=== PATIENT | female | born 1955 | race Asian ===

== ENCOUNTER 2017-03-17 09:54 | Outpatient (CLI) | payer OTHER ==
--- NOTE | 2017-03-18 09:45 | DEXA Report ---
DEXA BONE MINERAL DENSITY: 03/17/2017 CLINICAL HISTORY: A 61-year-old postmenopausal female. TECHNIQUE: Dual energy x-ray absorptiometry (DXA) was performed on a [employer] system. Regions measured are the AP spine, femoral neck, and, if needed, forearm. COMPARISON: None. In accordance with the International Society for Clinical Densitometry (ISCD) guidelines, data from previous exams may be reanalyzed using current recommendations and techniques. This is done to allow a more accurate basis for comparison with the current study. FINDINGS: The data for the lumbar spine is as follows: REGION BMD (g/cm/cm) T-SCORE Z-SCORE L1 0.879 -2.1 -0.3 L2 0.746 -2.1 -0.3 L3 0.974 -1.9 -0.1 L4 0.853 -2.1 -0.3 TOTAL 0.942 -2.0 -0.2 NOTE: All evaluable vertebrae are used for classification. The data for the hip is as follows: REGION BMD (g/cm/cm) T-SCORE Z-SCORE Neck 0.780 -1.9 -0.2 TOTAL 0.872 -1.1 0.3 NOTE: The femoral neck or total proximal femur, whichever is lowest, is used for classification. FINDINGS: L1 through L4 bone mineral density is 0.94 g/sq cm for a T-score of - 2.0. This is compatible with osteopenia according to World Health Organization guidelines. Left hip total bone mineral density is 0.872 g/sq cm for a T-score of -1.1. This is compatible with mild osteopenia according to World Health Organization guidelines. Left femoral neck bone mineral density is 0.78 g/sq cm for a T-score of -1.9. This indicates osteopenia according to World Health Organization guidelines. IMPRESSION: THE WHO CLASSIFICATION BASED ON THE INTERNATIONAL REFERENCE STANDARD IS OSTEOPENIA. THE PATIENT HAS INCREASED FRACTURE RISK. RECOMMENDATION: Patients with diagnosis of osteoporosis or osteopenia should have regular bone mineral density assessment. For those eligible for Medicare, routine testing is allowed once every 2 years. Testing frequency can be increased for patients who have rapidly progressing disease or for those who are receiving medical therapy to restore bone mass. COMMENT: World Health Organization (WHO) definitions for osteoporosis and osteopenia: NORMAL BMD: T-score at -1.0 or higher, fracture risk is low. OSTEOPENIA BMD: T-score between -1.0 and -2.5, fracture risk is increased. OSTEOPOROSIS BMD: T-score at -2.5 or lower, fracture risk high. National Osteoporosis Foundation recommends: 1. Obtain adequate dietary calcium (at least 1200 mg per day) and vitamin D (400 -800 international units per day). 2. Participate, as appropriate, in regular weightbearing and muscle- strengthening exercise. 3. Avoid tobacco use and reduce alcohol and caffeine intake. 4. For more detailed information see the website at www.NOF.org. MTDD
== END 2017-03-17 09:55 | disposition home or self-care (01) ==
LOC: DI 09:54
PROVIDERS: ATTEND Family Medicine
DX: M85.89 Other specified disorders of bone density and structure, multiple sites (principal)
CPT/HCPCS: 77080

== ENCOUNTER 2017-05-30 15:24 | Outpatient (CLI) | payer OTHER ==
--- NOTE | 2017-05-31 09:22 | Ultrasound Report ---
RIGHT UPPER QUADRANT ULTRASOUND: 05/30/2017 CLINICAL INDICATION: Hepatitis. TECHNIQUE: Real-time scanning was performed with medical detail representative static images obtained. FINDINGS: The liver measures 12.4 cm. A 1 cm cyst is incidentally noted in the right lobe. No mariana d hepatic lesion or intrahepatic biliary dilatation is present. The common bile duct measures 6 mm. The gallbladder is normal. The right kidney measures 11.5 cm, and demonstrates no hydronephrosis. No free fluid is present. IMPRESSION: INCIDENTAL 1 CM RIGHT LOBE CYST. NO EVIDENCE OF CHOLELITHIASIS OR BILIARY OBSTRUCTION. JOB #: [id number] EXT JOB #:[id number]
== END 2017-05-30 15:25 | disposition home or self-care (01) ==
LOC: DI 15:24
PROVIDERS: ATTEND Physician Assistant
DX: B19.20 Unspecified viral hepatitis C without hepatic coma (principal)
CPT/HCPCS: 76705

== ENCOUNTER 2018-02-10 07:52 | Outpatient (CLI) | payer OTHER ==
--- NOTE | 2018-02-10 11:21 | Ultrasound Report ---
Procedure Date: 02/10/2018 Accession Number: [id number] / [id number] Procedure: US - Abdomen Complete CPT Code: FULL RESULT: EXAM: Abdomen Complete DATE: 02/10/2018 9:32 AM CLINICAL HISTORY: CIRRHOSIS, ABD LIVER ENZYMES, HEPATITIS COMPARISON: 05/30/2017 TECHNIQUE: Real-time scanning was performed with static images obtained. FINDINGS: Liver: Hepatic echogenicity is increased, likely representing fatty infiltration. Incidental 9 mm cyst in the right lobe. 12.8 cm. Main portal vein flow: Hepatopetal. Gallbladder: Cholelithiasis is present. No wall thickening or pericholecystic fluid. Biliary System: Common bile duct measures 4 mm. No intrahepatic or extrahepatic ductal dilatation. Pancreas: Visualized portion is unremarkable. Kidneys: Right: 11.4 cm longitudinally. Possible nephrolithiasis, without hydronephrosis. Upper pole cyst. No solid mass. Left: 10.9 cm longitudinally. Normal. No contour-deforming mass, stones, or hydronephrosis. Spleen: 7.1 cm. Normal in size and echotexture. Aorta and Inferior Vena Cava: Unremarkable. IMPRESSION: Likely fatty infiltration of the liver. Cholelithiasis, without evidence of acute cholecystitis or biliary obstruction. Possible right nephrolithiasis. RADIA
== END 2018-02-10 07:53 | disposition home or self-care (01) ==
LOC: DI 07:52
PROVIDERS: ATTEND Internal Medicine Gastroenterology
DX: K74.60 Unspecified cirrhosis of liver (principal); K80.20 Calculus of gallbladder without cholecystitis without obstruction
CPT/HCPCS: 76700

== ENCOUNTER 2018-06-30 12:02 | Outpatient (CLI) | payer OTHER ==
--- NOTE | 2018-06-30 16:45 | MRI Report ---
Reason: HEADACHE Procedure Date: 06/30/2018 Accession Number: [id number] / [id number] Procedure: MRI - Brain W/O CPT Code: FULL RESULT: EXAM: MRI BRAIN WITHOUT CONTRAST EXAM DATE: 06/30/2018 12:57 PM. CLINICAL HISTORY: Headaches increasing in frequency. COMPARISON: None. TECHNIQUE: Multiplanar, multisequence T1-weighted and fluid-sensitive MR sequences of the brain were performed. Sequences optimized for routine evaluation. Other: None. IV Contrast: None. FINDINGS: No cerebellar tonsillar ectopia is present. No abnormal restricted diffusion signal or magnetic susceptibility is identified in the brain parenchyma. Ventricles and sulci are within normal limits. No extra-axial fluid collection is present. There are a few punctate FLAIR hyperintensities in the cerebral hemisphere white matter bilaterally. An expected flow-void is seen in the major intracranial vessels at the skull base. No mass is identified in either orbit. An expected flow-void is seen in each transverse sinus and in the superior sagittal sinus. IMPRESSION: 1.FLAIR hyperintensities in the cerebral hemisphere white matter bilaterally are nonspecific. Commonly, these are seen secondary to small vessel ischemic change or in association with certain headache syndromes. White matter lesions have been described in many other entities, including in demyelinating processes. No lesion typical of multiple sclerosis is identified on the current study. 2. No intracranial mass. 3. No extra-axial fluid collection RADIA
== END 2018-06-30 12:03 | disposition home or self-care (01) ==
LOC: DI 12:02
PROVIDERS: ATTEND Family Medicine
DX: R51 Headache (principal); R90.89 Other abnormal findings on diagnostic imaging of central nervous system
CPT/HCPCS: 70551

== ENCOUNTER 2020-03-13 12:19 | Outpatient (CLI) | payer OTHER ==
--- NOTE | 2020-03-20 08:07 | Mammography Report ---
Reason: screening mammo Procedure Date: 03/17/2020 Accession Number: [id number] / [id number] Procedure: MGN - Screening Mammo w/Russ CPT Code: Final Report FULL RESULT: BILATERAL DIGITAL SCREENING MAMMOGRAM 3D/2D: 03/17/2020 CLINICAL: Routine screening. Comparison is made to exams dated: 07/06/2012 mammogram, 07/29/2011 mammogram, 06/29/2010 mammogram, and 04/07/2009 mammogram - [facility]. There are scattered fibroglandular elements in both breasts. There is a possible 0.7 cm irregular equal density asymmetry in the right breast middle depth superior region seen on the mediolateral oblique view only. No other significant masses, calcifications, or other findings are seen in either breast. IMPRESSION: INCOMPLETE: NEEDS ADDITIONAL IMAGING EVALUATION The possible 0.7 cm irregular equal density asymmetry in the right breast is indeterminate. Additional views with possible ultrasound are recommended. This exam was interpreted at Station ID: [id number]. NOTE: For mammograms, a report in lay terms will be sent to the patient. Approximately 15% of breast malignancies will not be visualized mammographically. In the management of a palpable breast mass, a negative mammogram must not discourage biopsy of a clinically suspicious lesion. Electronically Signed By: Pepe Hodge M.D. aty/:03/19/2020 18:22:24 ACR BI-RADS Category 0: Incomplete 3340F B -Scattered fibroglandular 0 Mammo and [id number] Immediate follow-up R
== END 2020-03-13 12:20 | disposition home or self-care (01) ==
LOC: DI.N 12:19
DX: Z12.31 Encounter for screening mammogram for malignant neoplasm of breast (principal); R92.8 Other abnormal and inconclusive findings on diagnostic imaging of breast
CPT/HCPCS: 77063; 77067

== ENCOUNTER 2020-04-18 07:25 | Outpatient (CLI) | payer OTHER ==
--- NOTE | 2020-04-18 17:17 | Ultrasound Report ---
PROCEDURE: Abdomen Complete INDICATIONS: UNSPECIFIICD VIRAL HEPATITIS C W/O HEPATIC COMA TECHNIQUE: Real-time scanning was performed of the abdominal and retroperitoneal organs, with image documentatio n. COMPARISON: Prior abdominal ultrasound 02/10/2018. FINDINGS: Liver: Liver is normal in size and homogeneous in echotexture, slightly coarse and likely a manifest ation of early cirrhotic change in a patient with hepatitis C. No adjacent varices or ascites is foun d. Gallbladder: Contains a 5 x 8 x 9 mm nonmobile rounded structure without posterior shadowing, of unce rtain etiology and clinical significance. This could represent a moderate-sized gallbladder polyp. Th e gallbladder wall is normal in thickness at 2 mm. Biliary ducts: Intrahepatic bile ducts are non-dilated. Extrahepatic bile duct caliber measures 3 m m. Normal is 6-7 mm or less in diameter, or 10 mm or less post-cholecystectomy. Pancreas: Visualized portions of the pancreas are sonographically normal. Spleen: Spleen is normal in size and homogeneous in echotexture. Kidneys: Kidneys are normal in size and echotexture. Right kidney measures 10.4 cm long; left kidne y measures 10.7 cm long. No hydronephrosis or nephrolithiasis. No solid masses. There is a small hy perechoic focus at the superior right renal cortex measuring 6 x 6 x 8 mm. No associated shadowing. A cecilio: Visualized aorta is normal in caliber at less than 3 cm. Iliacs: Proximal common iliac arteries are normal in caliber at less than 2.5 cm. IVC: Intrahepatic inferior vena cava is patent. Miscellaneous: No free abdominal fluid. IMPRESSION: 1. Mild heterogeneity of the liver echotexture in this patient with history of hepatitis C. Mild cirr hotic change is the likely cause, but no ascites or varices are found. 2. Note is made of a 8 x 5 x 9 mm fixed focus against the mucosal surface of the gallbladder, potenti ally a moderate-sized polyp. Occasionally an adherent focus of sludge could produce such an appearanc e. Follow-up targeted imaging of this area is recommended in 6 months. 3. Hyperechoic focus superior cortex right kidney, potentially an angiomyolipoma. On follow-up 6 sabra h ultrasound further targeted assessment of this area is recommended. Reviewed by: Gerardo Green MD on 04/18/2020 5:16 PM PDT Approved by: Gerardo Green MD on 04/18/2020 5:16 PM PDT Station ID: [id number]
== END 2020-04-18 07:26 | disposition home or self-care (01) ==
LOC: DI 07:25
PROVIDERS: ATTEND Physician Assistant
DX: B19.20 Unspecified viral hepatitis C without hepatic coma (principal); R93.2 Abnormal findings on diagnostic imaging of liver and biliary tract; R93.421 Abnormal radiologic findings on diagnostic imaging of right kidney
CPT/HCPCS: 76700

== ENCOUNTER 2020-05-13 09:07 | Outpatient (CLI) | payer OTHER ==
--- NOTE | 2020-05-14 10:18 | Mammography Report ---
UNILATERAL RIGHT DIGITAL DIAGNOSTIC MAMMOGRAM 3D/2D: 05/13/2020 CLINICAL: Patient returns today to evaluate a focal asymmetry in the right breast. Comparison is made to exams dated: 03/17/2020 mammogram - [facility], 07/06/2012 kelsi mogram, 07/29/2011 mammogram, 07/06/2011 mammogram, 06/29/2010 mammogram, and 04/07/[address] mammogram - [facility]. There are scattered fibroglandular elements in right breast. There is a possible benign irregular asymmetry in the right breast middle depth superior region seen on the mediolateral oblique view only. This is not seen in additional views. No other significant masses or calcifications are seen in the breast. IMPRESSION: NEGATIVE There is no mammographic evidence of malignancy. Possible asymmetry is not seen on additional views. A 1 year screening mammogram is recommended. Exam findings conveyed to the patient. This exam was interpreted at Station ID: [id number]. NOTE: For mammograms, a report in lay terms will be sent to the patient. Approximately 15% of breast malignancies will not be visualized mammographically. In the management of a palpable breast mass, a negative mammogram must not discourage biopsy of a clinically suspicious lesion. Electronically Signed By: Pedro Perdomo M.D. slc/:05/13/2020 09:33:16 ACR BI-RADS Category 1: Negative 3341F PARENCHYMAL PATTERN: (A) - The breast(s) demonstrate(s) scattered fibroglandular densities. BI-RADS CATEGORY: (1) - 1 RECOMMENDATION: (ANNUAL) - Recommend routine annual screening mammography. [id number] 1 year screening LATERALITY: (B)
== END 2020-05-13 09:08 | disposition home or self-care (01) ==
LOC: DI 09:07
PROVIDERS: ATTEND Family Medicine
DX: R92.2 Inconclusive mammogram (principal)

== ENCOUNTER 2020-12-23 07:43 | Outpatient (CLI) | payer OTHER ==
--- NOTE | 2020-12-23 11:16 | Ultrasound Report ---
PROCEDURE: Abdomen Limited INDICATIONS: FATTY LIVER,ABN LIVER ENZYMES,HX OF HEP C TECHNIQUE: Real-time focused scanning was performed of the abdomen, with image documentation. COMPARISON: Prior abdominal ultrasound 04/18/2020 FINDINGS: The liver appears hyperechoic consistent with fatty infiltration. No focal liver lesion is seen nor is there intrahepatic biliary distention. The liver measures normal in volume and contains a small simple 5 x 5 x 6 mm right hepatic lobe cyst. The gallbladder is mildly abnormal, with 2 mobile stones measuring 8 mm and 5 mm respectively. The ga llbladder wall is not thickened and no adjacent biliary distention is seen. The common bile duct marina ures 6 mm. The pancreas visualized appears normal. Right kidney is normal at 10.1 cm craniocaudad. A nonobstructive superior right renal collecting system stone measures 7 mm. IMPRESSION: No biliary distention is found, but there are 2 small mobile stones within the gallbladder lumen. No hepatic mass is identified. Pancreas visualized appears normal but sonographic characterization of ac [place] cholecystitis generally is normal appearing pancreas until pancreatitis is moderately severe or g reater. Nonobstructive upper third right renal collecting system calculus, 7 mm. Reviewed by: Gerardo Green MD on 12/23/2020 11:15 AM PDT Approved by: Gerardo Green MD on 12/23/2020 11:15 AM PDT Station ID: [id number]
== END 2020-12-23 07:44 | disposition home or self-care (01) ==
LOC: DI 07:43
PROVIDERS: ATTEND Physician Assistant
DX: K80.20 Calculus of gallbladder without cholecystitis without obstruction (principal); N20.0 Calculus of kidney

== ENCOUNTER 2021-06-03 10:59 | Outpatient (CLI) | payer OTHER ==
--- NOTE | 2021-06-04 11:47 | Mammography Report ---
BILATERAL DIGITAL SCREENING MAMMOGRAM 3D/2D: 06/03/2021 CLINICAL: Routine screening. Comparison is made to exams dated: 05/13/2020 mammogram, 03/17/2020 mammogram - [facility], 01/12/2019 mammogram, 09/14/2017 mammogram, 08/19/2016 mammogram, and 02/11/2015 mammogram - [facility]. There are scattered fibroglandular elements in both breasts. No significant masses, calcifications, or other findings are seen in either breast. There has been no significant interval change. IMPRESSION: NEGATIVE There is no mammographic evidence of malignancy. A 1 year screening mammogram is recommended. This exam was interpreted at Station ID: [id number]. NOTE: For mammograms, a report in lay terms will be sent to the patient. Approximately 15% of breast malignancies will not be visualized mammographically. In the management of a palpable breast mass, a negative mammogram must not discourage biopsy of a clinically suspicious lesion. Electronically Signed By: Grzegorz Mathias M.D. ddp/penrad:06/03/2021 16:42:53 ACR BI-RADS Category 1: Negative 3341F PARENCHYMAL PATTERN: (A) - The breast(s) demonstrate(s) scattered fibroglandular densities. BI-RADS CATEGORY: (1) - 1 RECOMMENDATION: (ANNUAL) - Recommend routine annual screening mammography. [id number] 1 year screening LATERALITY: (B)
== END 2021-06-03 11:00 | disposition home or self-care (01) ==
LOC: DI 10:59
DX: Z12.31 Encounter for screening mammogram for malignant neoplasm of breast (principal)

== ENCOUNTER 2021-11-30 10:42 | Outpatient (CLI) | payer MEDICARE, OTHER ==
[2021-11-30 18:17] LABS: BASOPHILS % (AUTO) 0.8 %; EOSINOPHILS # (AUTO) 0.1 10^3/uL (0.0-0.7); HCT - HEMATOCRIT 44.2 % (37.0-47.0); HGB - HEMOGLOBIN 14.7 g/dL (12.0-16.0); LYMPHOCYTES # (AUTO) 1.9 10^3/uL (1.5-3.5); LYMPHOCYTES % (AUTO) 39.4 %; MEAN CORPUSCULAR HEMOGLOBIN 30.8 pg (27.0-31.0); MEAN CORPUSCULAR HGB CONC 33.3 g/dL (32.0-36.0); MEAN CORPUSCULAR VOLUME 92.7 fL (81.0-99.0); MEAN PLATELET VOLUME 9.9 fL (7.9-10.8); MONOCYTES # (AUTO) 0.2 10^3/uL (0.0-1.0); MONOCYTES % (AUTO) 4.4 %; NEUTROPHILS # (AUTO) 2.6 10^3/uL (1.5-6.6); NEUTROPHILS % (AUTO) 54.2 %; PLT - PLATELET COUNT 205 10^3/uL (130-450); RED BLOOD COUNT 4.77 10^6/uL (4.20-5.40); RED CELL DISTRIBUTION WIDTH 12.7 % (12.0-15.0); WHITE BLOOD COUNT 4.8 x10^3/uL (4.8-10.8)
[2021-11-30 18:25] LABS: BILIRUBIN,URINE NEGATIVE (NEGATIVE); GLUCOSE, URINE (UA) NEGATIVE (NEGATIVE); KETONES,URINE (UA) NEGATIVE (NEGATIVE); LEUKOCYTE ESTERASE, URINE NEGATIVE (NEGATIVE); NITRITE,URINE POSITIVE (NEGATIVE); OCCULT BLOOD,URINE NEGATIVE (NEGATIVE); PROTEIN,URINE NEGATIVE (NEGATIVE); UROBILINOGEN,URINE 0.2 (NORMAL) E.U./dL (NORMAL)
[2021-11-30 18:29] LABS: ALBUMIN 4.8 g/dL (3.2-5.5); ALBUMIN/GLOBULIN RATIO 1.4 (1.0-2.2); ALKALINE PHOSPHATASE 51 IU/L (42-121); ALT ALANINE AMINOTRANSFERASE 16 IU/L (10-60); AST ASPARTATE AMINOTRANSFERASE 23 IU/L (10-42); BILIRUBIN,TOTAL 0.5 mg/dL (0.2-1.0); BUN - BLOOD UREA NITROGEN 12 mg/dL (6-20); CALCIUM 10.3 mg/dL (8.5-10.3); CARBON DIOXIDE - CO2 25 mmol/L (21-32); CHLORIDE 104 mmol/L (101-111); CHOL/HDL RATIO 5.1 (<4.4); CHOLESTEROL 313 mg/dL; CREATININE 0.7 mg/dL (0.4-1.0); GFR - MDRD 84 (>89); GLUCOSE 101 mg/dL (70-100); HDL CHOLESTEROL 61 mg/dL; LDL CHOLESTEROL,CALCULATED 232 mg/dL; LDL/HDL RATIO 3.8 (<4.4); POTASSIUM 5.1 mmol/L (3.5-5.0); SODIUM 139 mmol/L (135-145); TOTAL PROTEIN 8.2 g/dL (6.7-8.2); TRIGLYCERIDES 98 mg/dL; VLDL CHOLESTEROL 20 mg/dL
[2021-11-30 18:33] LABS: CLARITY,URINE CLEAR (CLEAR)
[2021-11-30 18:37] LABS: THYROID STIMULATING HORMONE 0.75 uIU/mL (0.34-5.60)
[2021-11-30 19:13] LABS: BACTERIA,URINE Many /HPF (None Seen); RBC,URINE None Seen /HPF (0-5); SQUAMOUS EPITHELIAL CELL,UR RARE Squamous (<= Few); WBC,URINE 0-3 /HPF (0-5)
[2021-11-30 19:18] LABS: BILIRUBIN,DIRECT < 0.1 mg/dL (0.1-0.5)
[2021-11-30 21:14] LABS: ESTIMATED AVERAGE GLUCOSE 117 mg/dL (70-100); HEMOGLOBIN A1c% 5.7 % (4.27-6.07)
== END 2021-11-30 10:43 | disposition home or self-care (01) ==
LOC: LAB.N 10:42
PROVIDERS: ATTEND Nurse Practitioner Family
DX: K76.0 Fatty (change of) liver, not elsewhere classified (principal); Z87.19 Personal history of other diseases of the digestive system; Z13.220 Encounter for screening for lipoid disorders; R10.9 Unspecified abdominal pain; Z13.21 Encounter for screening for nutritional disorder; Z13.1 Encounter for screening for diabetes mellitus; Z13.29 Encounter for screening for other suspected endocrine disorder
CPT/HCPCS: 36415; 80053; 80061; 80076; 81001; 81003; 81599; 82105; 82306; 83036; 83721; 84443; 85025; 87086

== ENCOUNTER 2021-12-16 08:32 | Outpatient (CLI) | payer MEDICARE, OTHER ==
--- NOTE | 2021-12-16 12:04 | Ultrasound Report ---
PROCEDURE: Abdomen Complete INDICATIONS: SCREENING FOR OSTEOPOROSIS, HIST OF HEPATITIS TECHNIQUE: Real-time scanning was performed of the abdominal and retroperitoneal organs, with image documentatio n. COMPARISON: 12/23/2020 FINDINGS: Liver: Liver is diminutive measuring 10.4 cm in length. The parenchyma is coarse and heterogeneous i n echotexture. Probable small cyst centrally in the right hepatic lobe measuring 9 mm. No suspicious solid masses. Gallbladder: The gallbladder is normal in wall thickness, and no pericholecystic fluid. There are 2 m obile stones in the gallbladder, similar compared to the prior study. No sonographic Brooks's sign pe r the technologist. Biliary ducts: Intrahepatic bile ducts are non-dilated. Extrahepatic bile duct caliber measures 5.5 mm. Normal is 6-7 mm or less in diameter, or 10 mm or less post-cholecystectomy. Pancreas: Visualized portions of the pancreas are sonographically normal. Spleen: Spleen is normal in size and homogeneous in echotexture. Kidneys: Kidneys are normal in size and echotexture. Right kidney measures 10.2 cm long; left kidne y measures 10.9 cm long. The 6 mm superior cortical oval echogenic focus, probably nonobstructing sto ne is stable. No hydronephrosis.. No solid masses. Aorta: Visualized aorta is normal in caliber at less than 3 cm. Iliacs: Proximal common iliac arteries are normal in caliber at less than 2.5 cm. IVC: Intrahepatic inferior vena cava is patent. Miscellaneous: No free abdominal fluid. IMPRESSION: 1. Coarse, mildly hyperechoic hepatic parenchyma, similar compared to the prior study. This is consis tent with intrinsic liver disease and/or steatosis. 2. No suspicious liver mass. 3. Cholelithiasis without cholecystitis. 4. 6 mm right upper pole nonobstructing hyperechoic focus, likely calcification. Reviewed by: Cheli Ruiz MD on 12/16/2021 12:03 PM PDT Approved by: Cheli Ruiz MD on 12/16/2021 12:03 PM PDT Station ID: [id number]
--- NOTE | 2021-12-16 13:47 | DEXA Report ---
PROCEDURE: Dexa Spine and/or Hip INDICATIONS: SCREENING FOR OSTEOPOROSIS, HIST OF HEPATITIS TECHNIQUE: Dual energy x-ray absorptiometry (DXA) was performed on a [employer] System. Regions measur ed are the AP Spine, femoral neck, and if needed forearm. COMPARISON: 12/16/2016. FINDINGS: Lumbar Spine: Bone Mineral Density 0.934 g/cm/cm,T score -2.0, osteopenia Left Hip: Bone Mineral Density 0.851 g/cm/cm,T score -1.2, osteopenia Left Femoral Neck: Bone Mineral Density 0.768 g/cm/cm, T score -1.9, osteopenia (T score greater or equal to -1.0: NORMAL) (T score from -1.1 to -2.4: OSTEOPENIA) (T score less than or equal to -2.5 to: OSTEOPOROSIS) Impression: Osteopenia. Bone mineral density has decreased 2.4% in the interval since prior exam obtained 720/201 7. Patients with diagnosis of osteoporosis or osteopenia should have regular bone mineral density assess ment. For those eligible for Medicare, routine testing is allowed once every 2 years. Testing frequ ency can be increased for patients who have rapidly progressing disease or for those who are receivin g medical therapy to restore bone mass. Reviewed by: Laura Nino MD, PhD on 12/16/2021 1:46 PM PDT Approved by: Laura Nino MD, PhD on 12/16/2021 1:46 PM PDT Station ID: [id number]
== END 2021-12-16 08:33 | disposition home or self-care (01) ==
LOC: DI 08:32
PROVIDERS: ATTEND Nurse Practitioner Family
DX: Z13.820 Encounter for screening for osteoporosis (principal); M85.89 Other specified disorders of bone density and structure, multiple sites; K80.20 Calculus of gallbladder without cholecystitis without obstruction; N20.0 Calculus of kidney; Z87.19 Personal history of other diseases of the digestive system

== ENCOUNTER 2022-10-05 22:35 | Emergency (ER) | payer MEDICARE, OTHER ==
--- NOTE | 2022-10-05 23:28 | ED Physician Documentation ---
History of Present Illness - Stated complaint Stated Complaint: HBP, SOA, HEADACHE - Chief complaint Chief Complaint: Cardiac - History obtained from History obtained from: Patient, Family () - Additonal information Additional information: 67yF with pmh hld p/w episode of lightheadedness around 6pm tonight, soa when climbing the stairs, now resolved. patient took her BP and found it to be 175 /103 at home, improving to sbp 165 after googling symptoms and treatment and ingesting garlic celery, honey and lemon. also with gradual onset frontal headache just before that persists now. denies chest pain, palpitations. note that patient endorses insomnia X 1 month. Review of Systems Constitutional: denies: Fever Nose: denies: Rhinorrhea / runny nose Cardiac: denies: Chest pain / pressure Respiratory: reports: Dyspnea. denies: Cough GI: denies: Abdominal Pain, Nausea PD PAST MEDICAL HISTORY - Present Medications Home Medications: Ambulatory Orders Medication Instructions Recorded Confirmed hydrOXYzine pamoate [Hydroxyzine 25 mg PO QPM PRN 30 Days #30 cap 10/06/22 Pamoate] - Allergies Allergies/Adverse Reactions: Allergies Allergy/AdvReac Type Severity Reaction Status Date / Time No Known Drug Allergies Allergy Verified 10/05/22 22:41 PD ED PE NORMAL - Vitals Vital signs reviewed: Yes - General General: Alert and oriented X 3, No acute distress, Well developed/nourished - HEENT HEENT: Atraumatic, PERRL, EOMI - Neck Neck: Supple, no meningeal sign - Cardiac Cardiac: RRR - Respiratory Respiratory: No respiratory distress, Clear bilaterally - Derm Derm: Normal color, Warm and dry - Neuro Neuro: No motor deficit, No sensory deficit - Psych Psych: Other (anxious affect) Results - Vitals Vitals: Vital Signs - 24 hr 10/05/22 10/05/22 22:41 22:49 Temperature 36.8 C 36.8 C Heart Rate 85 85 Respiratory 16 16 Rate Blood Pressure 168/81 H 168/81 H O2 Saturation 100 100 Oxygen O2 Source Room air - EKG (time done) 2254 Rate: Rate (enter#) (81) Rhythm: NSR [place]: Normal Intervals: Normal [place], QRS normal QRS: Normal Ischemia: Normal ST segments Computer interpretation: Disagree with computer (no evidence of significant ST changes) - Labs Labs: Laboratory Tests 10/05/22 10/05/22 10/05/22 23:30 23:30 23:30 WBC 5.1 RBC 4.47 Hgb 13.5 Hct 41.4 MCV 92.6 MCH 30.2 MCHC 32.6 RDW 12.5 Plt Count 203 MPV 9.4 Neut # (Auto) 2.5 Lymph # (Auto) 2.0 [place] # (Auto) 0.3 Eos # (Auto) 0.1 Baso # (Auto) 0.1 Absolute Nucleated RBC 0.00 Nucleated RBC % 0.0 Sodium 139 Potassium 4.1 Chloride 104 Carbon Dioxide 23 Anion Gap 12.0 BUN 18 Creatinine 0.6 Estimated GFR (MDRD) 100 Glucose 111 H Calcium 10.0 Total Bilirubin 0.4 AST 19 ALT 17 Alkaline Phosphatase 49 Troponin I High Sens 4.2 Total Protein 7.6 Albumin 4.3 Globulin 3.3 Albumin/Globulin Ratio 1.3 Lipase 81 H PD Medical Decision Making - ED course ED course: 67yF, previously healthy with exception of hld, p/w dizziness, soa, neck pain and headache this past evening as well as high BP at home. Plan for CBC, abdominal panel, chest xray. ekg NSR with normal intervals and no ST changes. well appearing with normal exam aside from BP 168/81. declined tylenol. plan to f/u labs, reevaluate. CBC, abdominal panel, troponin without concerning findings. d/w patient regarding mild bump in pnacreatic function testing. CXR wet read negative for cardiopulmonary pathology. Provided with toradol for neck pain and atarax as sleep aid for tonight. rx sent to pharmacy. return precautions given. Plan to f/u with pcp. Departure - Departure Disposition: Home, Self Care Clinical Impression: Dizziness, Hypertension, Shortness of breath, Neck pain Condition: Stable Instructions: Hypertension Control, Insomnia Prescriptions: hydrOXYzine pamoate [Hydroxyzine Pamoate] 25 mg PO QPM PRN 30 Days #30 cap PRN Reason: Insomnia Comments: You were seen in the emergency department for medical evaluation. You were work-up uncovered no emergent conditions but you did have high blood pressure that should be rechecked in the near future. Please follow-up with your primary care provider. Return to the emergency department for new or worsening symptoms or other concerns. Prescription for atarax (generic name- hydroxyzine), a sleep aid, was sent electronically to [facility] in [place].
[2022-10-05 23:41] LABS: BASOPHILS # (AUTO) 0.1 10^3/uL (0.0-0.1); BASOPHILS % (AUTO) 1.2 %; EOSINOPHILS # (AUTO) 0.1 10^3/uL (0.0-0.7); EOSINOPHILS % (AUTO) 2.4 %; HCT - HEMATOCRIT 41.4 % (37.0-47.0); HGB - HEMOGLOBIN 13.5 g/dL (12.0-16.0); MEAN CORPUSCULAR HEMOGLOBIN 30.2 pg (27.0-31.0); MEAN CORPUSCULAR HGB CONC 32.6 g/dL (32.0-36.0); MEAN CORPUSCULAR VOLUME 92.6 fL (81.0-99.0); MEAN PLATELET VOLUME 9.4 fL (7.9-10.8); MONOCYTES # (AUTO) 0.3 10^3/uL (0.0-1.0); MONOCYTES % (AUTO) 6.1 %; NEUTROPHILS # (AUTO) 2.5 10^3/uL (1.5-6.6); NEUTROPHILS % (AUTO) 50.1 %; PLT - PLATELET COUNT 203 10^3/uL (130-450); RED BLOOD COUNT 4.47 10^6/uL (4.20-5.40); RED CELL DISTRIBUTION WIDTH 12.5 % (12.0-15.0); WHITE BLOOD COUNT 5.1 x10^3/uL (4.8-10.8)
[2022-10-05 23:50] LABS: ALBUMIN 4.3 g/dL (3.2-5.5); ALBUMIN/GLOBULIN RATIO 1.3 (1.0-2.2); BILIRUBIN,TOTAL 0.4 mg/dL (0.2-1.0); CREATININE 0.6 mg/dL (0.4-1.0); POTASSIUM 4.1 mmol/L (3.5-5.0); TOTAL PROTEIN 7.6 g/dL (6.7-8.2)
[2022-10-06] MEDS ORDERED: hydrOXYzine PAMOATE 25 MG CAPSULE PO STA (00:21)
[2022-10-06] MEDS ORDERED: KETOROLAC 30 MG/ML VIAL IM STA (00:21)
[2022-10-06 00:34] VITALS: BP 158/91
--- NOTE | 2022-10-06 00:35 | XRAY Report ---
PROCEDURE: Chest 2 View X-Ray INDICATIONS: soa TECHNIQUE: 2 views of the chest were acquired. COMPARISON: None. FINDINGS: Surgical changes and devices: None. Lungs and pleura: No pleural effusions or pneumothorax. Lungs are clear. Mediastinum: Mediastinal contours are normal. Heart size is normal. Bones and chest wall: No suspicious bony abnormalities. Soft tissues appear unremarkable. IMPRESSION: 1. No acute cardiopulmonary disease. Reviewed by: Grzegorz Canela MD on 10/06/2022 12:45 AM [facility] [[email or web address]] Approved by: Grzegorz Canela MD on 10/06/2022 12:45 AM [facility] [[email or web address]] Station ID: [id number]
== END 2022-10-06 00:33 | disposition home or self-care (01) ==
LOC: ED 22:35
DX: I10 Essential (primary) hypertension (principal); R42 Dizziness and giddiness; R06.02 Shortness of breath; M54.2 Cervicalgia; G47.00 Insomnia, unspecified
CPT/HCPCS: 36415; 71046; 80053; 83690; 84484; 85025; 93005; 96372; 99284; A9270

== ENCOUNTER 2022-10-18 13:24 | Outpatient (CLI) | payer MEDICARE, OTHER ==
--- NOTE | 2022-10-19 10:36 | Mammography Report ---
BILATERAL DIGITAL SCREENING MAMMOGRAM 3D/2D: 10/18/2022 CLINICAL: Routine screening. Comparison is made to exams dated: 06/03/2021 mammogram, 05/13/2020 mammogram, 03/17/2020 mammogram - [facility], 01/12/2019 mammogram, 09/14/2017 mammogram, and 02/11/2015 mammogram - [facility]. There are scattered areas of fibroglandular density in both breasts (category b / 25%-50% glandular t issue). No significant masses, calcifications, or other findings are seen in either breast. There has been no significant interval change. IMPRESSION: NEGATIVE There is no mammographic evidence of malignancy. A 1 year screening mammogram is recommended. Based on the Tyrer Cuzick model (a risk assessment model) the patients lifetime risk is 4.8% and her 10 year risk is 2.4%. According to the ACR, ACS, and NCCN guidelines, an annual breast MRI exam mina g with mammogram is recommended if the patients lifetime risk is 20% or greater. This exam was interpreted at Station ID: [id number]. NOTE: For mammograms, a report in lay terms will be sent to the patient. Approximately 15% of breast malignancies will not be visualized mammographically. In the management of a palpable breast mass, a negative mammogram must not discourage biopsy of a clinically suspicious lesion. Electronically Signed By: Pepe chandler/christophe:10/18/2022 16:27:39 letter sent: No_Letter ACR BI-RADS Category 1: Negative 3341F PARENCHYMAL PATTERN: (A) - The breast(s) demonstrate(s) scattered fibroglandular densities. BI-RADS CATEGORY: (1) - 1 RECOMMENDATION: (ANNUAL) - Recommend routine annual screening mammography. [id number] 1 year screening LATERALITY: (B)
== END 2022-10-18 13:25 | disposition home or self-care (01) ==
LOC: DI 13:24
PROVIDERS: ATTEND Nurse Practitioner Family
DX: Z12.31 Encounter for screening mammogram for malignant neoplasm of breast (principal)

== ENCOUNTER 2022-12-03 13:22 | Outpatient (CLI) | payer MEDICARE, OTHER ==
[2022-12-03 18:07] LABS: CHOL/HDL RATIO 5.4 (<4.4); CHOLESTEROL 347 mg/dL; HDL CHOLESTEROL 64 mg/dL; LDL CHOLESTEROL,CALCULATED 266 mg/dL; LDL/HDL RATIO 4.2 (<4.4); TRIGLYCERIDES 84 mg/dL; VLDL CHOLESTEROL 17 mg/dL
== END 2022-12-03 13:23 | disposition home or self-care (01) ==
LOC: LAB.N 13:22
PROVIDERS: ATTEND Nurse Practitioner Family
DX: E78.5 Hyperlipidemia, unspecified (principal)
CPT/HCPCS: 36415; 80061; 83721

== ENCOUNTER 2023-03-04 09:26 | Outpatient (CLI) | payer MEDICARE, OTHER ==
[2023-03-04 12:57] LABS: BASOPHILS % (AUTO) 1.1 %; EOSINOPHILS # (AUTO) 0.1 10^3/uL (0.0-0.7); EOSINOPHILS % (AUTO) 1.7 %; HGB - HEMOGLOBIN 13.3 g/dL (12.0-16.0); LYMPHOCYTES # (AUTO) 1.6 10^3/uL (1.5-3.5); LYMPHOCYTES % (AUTO) 43.2 %; MEAN CORPUSCULAR HEMOGLOBIN 30.8 pg (27.0-31.0); MEAN CORPUSCULAR HGB CONC 33.3 g/dL (32.0-36.0); MEAN CORPUSCULAR VOLUME 92.6 fL (81.0-99.0); MEAN PLATELET VOLUME 10.5 fL (7.9-10.8); MONOCYTES # (AUTO) 0.2 10^3/uL (0.0-1.0); MONOCYTES % (AUTO) 6.4 %; NEUTROPHILS # (AUTO) 1.7 10^3/uL (1.5-6.6); NEUTROPHILS % (AUTO) 47.3 %; PLT - PLATELET COUNT 191 10^3/uL (130-450); RED BLOOD COUNT 4.32 10^6/uL (4.20-5.40); RED CELL DISTRIBUTION WIDTH 12.6 % (12.0-15.0); WHITE BLOOD COUNT 3.6 x10^3/uL (4.8-10.8)
[2023-03-04 13:12] LABS: ALBUMIN 4.1 g/dL (3.2-5.5); ALBUMIN/GLOBULIN RATIO 1.3 (1.0-2.2); ALKALINE PHOSPHATASE 43 IU/L (42-121); ALT ALANINE AMINOTRANSFERASE 16 IU/L (10-60); AST ASPARTATE AMINOTRANSFERASE 24 IU/L (10-42); BILIRUBIN,TOTAL 0.6 mg/dL (0.2-1.0); BUN - BLOOD UREA NITROGEN 15 mg/dL (6-20); CALCIUM 9.3 mg/dL (8.5-10.3); CARBON DIOXIDE - CO2 26 mmol/L (21-32); CHLORIDE 103 mmol/L (101-111); CHOL/HDL RATIO 4.3 (<4.4); CHOLESTEROL 252 mg/dL; CREATININE 0.6 mg/dL (0.4-1.0); GFR - MDRD 100 (>89); GLUCOSE 97 mg/dL (70-100); HDL CHOLESTEROL 59 mg/dL; LDL CHOLESTEROL,CALCULATED 175 mg/dL; SODIUM 136 mmol/L (135-145); TOTAL PROTEIN 7.2 g/dL (6.7-8.2); TRIGLYCERIDES 90 mg/dL; VLDL CHOLESTEROL 18 mg/dL
[2023-03-09 16:08] LABS: HCV AB Reactive (Non Reactive); HCV IU/ML HCV Not Detected IU/mL (.)
== END 2023-03-04 09:27 | disposition home or self-care (01) ==
LOC: LAB.N 09:26
PROVIDERS: ATTEND Nurse Practitioner Family
DX: E78.5 Hyperlipidemia, unspecified (principal); M85.80 Other specified disorders of bone density and structure, unspecified site; Z11.59 Encounter for screening for other viral diseases; Z79.899 Other long term (current) drug therapy
CPT/HCPCS: 36415; 80053; 80061; 83721; 85025; 86803; 87522

== ENCOUNTER 2024-01-06 08:53 | Outpatient (CLI) | payer MEDICARE, OTHER ==
--- NOTE | 2024-01-06 14:46 | MRI Report ---
PROCEDURE: Shoulder RT WO INDICATIONS: R SHOULDER PAIN TECHNIQUE: Noncontrast oblique coronal T2 fast spin echo with fat saturation, oblique sagittal T1 spin echo and T2 fast spin echo with fat saturation, axial T1 spin echo and T2 fast spin echo with fat saturation t hrough the shoulder. COMPARISON: None. FINDINGS: Image quality: Excellent. Rotator cuff: Moderate grade articular surface partial-thickness tear involving distal supraspinatus at its insertion on humeral head is seen extending to muscular junction. Distal infraspinatus and sub scapularis tendinosis is seen. No full-thickness rotator cuff tendon rupture. Mild supraspinatus musc le atrophy on sagittal images. Bones and bursae: No bone marrow contusions or fractures. Mild to moderate acromioclavicular joint o steoarthritic changes are seen. Small amount of joint effusion and moderate amount of subacromial sub deltoid bursal fluid is seen, bursitis cannot be excluded. No loose bodies. Capsule and soft tissues: The labrum is grossly intact. The glenohumeral ligaments are grossly intact . The long head of the biceps tendon is thickened with intrasubstance T2 hyperintense signal at the l evel of humeral head. The rotator interval appears normal, without fibrosis. The coracohumeral ligam ent is normal in thickness. IMPRESSION: 1. Moderate grade articular surface partial-thickness tear involving distal supraspinatus extending t o muscular tendinous junction. Distal infraspinatus and subscapularis tendinosis. No full-thickness r otator cuff tendon rupture. Mild supraspinatus muscle atrophy. 2. Mild to moderate acromioclavicular joint osteoarthritis. Small to moderate amount of subacromial s ubdeltoid bursal fluid, concerning for bursitis. No loose bodies. 3. No evidence of focal labral tear. 4. Proximal long head of biceps tendinosis/low-grade intrasubstance partial thickness tear. Reviewed by: Jeovany Morris MD on 01/06/2024 2:45 PM PDT Approved by: Jeovany Morris MD on 01/06/2024 2:45 PM PDT Station ID: [id number]
== END 2024-01-06 08:54 | disposition home or self-care (01) ==
LOC: DI 08:53
PROVIDERS: ATTEND Nurse Practitioner Family
DX: M75.111 Incomplete rotator cuff tear or rupture of right shoulder, not specified as traumatic (principal); M62.511 Muscle wasting and atrophy, not elsewhere classified, right shoulder; M19.011 Primary osteoarthritis, right shoulder; S46.121A Laceration of muscle, fascia and tendon of long head of biceps, right arm, initial encounter

== ENCOUNTER 2024-01-06 08:55 | Outpatient (CLI) | payer MEDICARE, OTHER ==
--- NOTE | 2024-01-09 09:28 | Mammography Report ---
BILATERAL DIGITAL SCREENING MAMMOGRAM 3D/2D: 01/06/2024 CLINICAL: Routine screening. Comparison is made to exams dated: 10/18/2022 mammogram, 05/13/2020 mammogram, 06/03/2021 mammogram, mammogram - [facility], and 01/12/2019 mammogram - [facility]. There are scattered areas of fibroglandular density in both breasts (category b / 25%-50% glandular t issue). No significant masses, calcifications, or other findings are seen in either breast. There has been no significant interval change. IMPRESSION: NEGATIVE There is no mammographic evidence of malignancy. A 1 year screening mammogram is recommended. Based on the Tyrer Cuzick model (a risk assessment model) the patient's lifetime risk is 4.6% and her 10 year risk is 2.4%. According to the ACR, ACS, and NCCN guidelines, an annual breast MRI exam mina g with mammogram is recommended if the patient's lifetime risk is 20% or greater. This exam was interpreted at Station ID: [id number]. NOTE: For mammograms, a report in lay terms will be sent to the patient. Approximately 15% of breast malignancies will not be visualized mammographically. In the management of a palpable breast mass, a negative mammogram must not discourage biopsy of a clinically suspicious lesion. Electronically Signed By: Pedro Perdomo M.D. [facility]:01/06/2024 11:43:53 ACR BI-RADS Category 1: Negative 3341F PARENCHYMAL PATTERN: (A) - The breast(s) demonstrate(s) scattered fibroglandular densities. BI-RADS CATEGORY: (1) - 1 RECOMMENDATION: (ANNUAL) - Recommend routine annual screening mammography. [id number] 1 year screening LATERALITY: (B)
== END 2024-01-06 08:56 | disposition home or self-care (01) ==
LOC: DI 08:55
DX: Z12.31 Encounter for screening mammogram for malignant neoplasm of breast (principal); R92.323 Mammographic fibroglandular density, bilateral breasts

== ENCOUNTER 2024-02-21 10:44 | Outpatient (CLI) | payer MEDICARE, OTHER ==
[2024-02-21 17:55] LABS: BASOPHILS # (AUTO) 0.1 10^3/uL (0.0-0.1); BASOPHILS % (AUTO) 1.6 %; EOSINOPHILS # (AUTO) 0.1 10^3/uL (0.0-0.7); EOSINOPHILS % (AUTO) 1.9 %; HCT - HEMATOCRIT 47.3 % (37.0-47.0); HGB - HEMOGLOBIN 15.5 g/dL (12.0-16.0); LYMPHOCYTES # (AUTO) 1.4 10^3/uL (1.5-3.5); LYMPHOCYTES % (AUTO) 36.9 %; MEAN CORPUSCULAR HEMOGLOBIN 30.5 pg (27.0-31.0); MEAN CORPUSCULAR HGB CONC 32.8 g/dL (32.0-36.0); MEAN CORPUSCULAR VOLUME 93.1 fL (81.0-99.0); MEAN PLATELET VOLUME 10.1 fL (7.9-10.8); MONOCYTES # (AUTO) 0.2 10^3/uL (0.0-1.0); MONOCYTES % (AUTO) 5.3 %; PLT - PLATELET COUNT 236 10^3/uL (130-450); RED BLOOD COUNT 5.08 10^6/uL (4.20-5.40); RED CELL DISTRIBUTION WIDTH 12.8 % (12.0-15.0); WHITE BLOOD COUNT 3.7 x10^3/uL (4.8-10.8)
[2024-02-21 18:22] LABS: ALBUMIN 5.1 g/dL (3.2-5.5); ALBUMIN/GLOBULIN RATIO 1.5 (1.0-2.2); BILIRUBIN,TOTAL 0.6 mg/dL (0.2-1.0); CALCIUM 10.5 mg/dL (8.5-10.3); CREATININE 0.7 mg/dL (0.6-1.3); POTASSIUM 4.3 mmol/L (3.5-4.5); TOTAL PROTEIN 8.6 g/dL (6.4-8.9)
[2024-02-21 18:22] LABS: CHOL/HDL RATIO 3.9 (<4.4); CHOLESTEROL 269 mg/dL; HDL CHOLESTEROL 69 mg/dL; LDL CHOLESTEROL,CALCULATED 180 mg/dL; LDL/HDL RATIO 2.6 (<4.4); TRIGLYCERIDES 101 mg/dL (48-352); VLDL CHOLESTEROL 20 mg/dL
[2024-02-21 18:28] LABS: THYROID STIMULATING HORMONE 0.88 uIU/mL (0.34-5.60)
[2024-02-21 21:04] LABS: ESTIMATED AVERAGE GLUCOSE 108 mg/dL (70-100); HEMOGLOBIN A1c% 5.4 % (4.27-6.07)
== END 2024-02-21 10:45 | disposition home or self-care (01) ==
LOC: LAB.N 10:44
PROVIDERS: ATTEND Nurse Practitioner Family
DX: K76.0 Fatty (change of) liver, not elsewhere classified (principal); R03.0 Elevated blood-pressure reading, without diagnosis of hypertension; E78.5 Hyperlipidemia, unspecified; Z13.1 Encounter for screening for diabetes mellitus; R51.9 Headache, unspecified
CPT/HCPCS: 36415; 80053; 80061; 83036; 83721; 84443; 85025; 85651

== ENCOUNTER 2024-04-17 12:58 | Outpatient (CLI) | payer MEDICARE, OTHER ==
--- NOTE | 2024-04-18 10:59 | DEXA Report ---
PROCEDURE: Dexa Spine and/or Hip INDICATIONS: OSTEOPENIA TECHNIQUE: Dual energy x-ray absorptiometry (DXA) was performed on a [employer] System. Regions measur ed are the AP Spine, femoral neck, and if needed forearm. COMPARISON: DEXA 12/16/2021 FINDINGS: Lumbar Spine: Bone Mineral Density: 0.925 g/cm/cm,T score: -2.1. There has been no statistically significant thornton e in bone mineral density since the prior study. Left Femoral Neck: Bone Mineral Density: 0.751 g/cm/cm, T score: -2.1. Left Hip: Bone Mineral Density: 0.849 g/cm/cm,T score: -1.3. There has been no statistically significant change in bone mineral density since the prior study. FRAX risk factors: None given. 10 year risk of major osteoporotic fracture: 5.9% major osteoporotic fracture = hip, clinical vertebral, proximal humerus, distal forearm 10 year risk of hip fracture: 1.1% (T score greater or equal to -1.0: NORMAL) (T score from -1.1 to -2.4: OSTEOPENIA) (T score less than or equal to -2.5 to: OSTEOPOROSIS) Impression: By WHO criteria, this patient has low bone density (osteopenia). No statistical interval change in bone mineral density of the lumbar spine. No statistical interval c hange in bone mineral density of the hip. Patients with diagnosis of osteoporosis or osteopenia should have regular bone mineral density assess ment. For those eligible for Medicare, routine testing is allowed once every 2 years. Testing frequ ency can be increased for patients who have rapidly progressing disease or for those who are receivin g medical therapy to restore bone mass. Reviewed by: Chalino Watkins MD on 04/18/2024 10:57 AM PDT Approved by: Chalino Watkins MD on 04/18/2024 10:57 AM PDT Station ID: [id number]
== END 2024-04-17 12:59 | disposition home or self-care (01) ==
LOC: DI 12:58
PROVIDERS: ATTEND Nurse Practitioner Family
DX: M85.89 Other specified disorders of bone density and structure, multiple sites (principal)

== ENCOUNTER 2024-05-04 10:22 | Outpatient (CLI) | payer MEDICARE, OTHER ==
[2024-05-04 17:48] LABS: BASOPHILS % (AUTO) 0.9 %; EOSINOPHILS # (AUTO) 0.1 10^3/uL (0.0-0.7); EOSINOPHILS % (AUTO) 1.9 %; HCT - HEMATOCRIT 44.4 % (37.0-47.0); HGB - HEMOGLOBIN 14.2 g/dL (12.0-16.0); LYMPHOCYTES # (AUTO) 1.8 10^3/uL (1.5-3.5); LYMPHOCYTES % (AUTO) 42.7 %; MEAN CORPUSCULAR HEMOGLOBIN 29.9 pg (27.0-31.0); MEAN CORPUSCULAR VOLUME 93.5 fL (81.0-99.0); MEAN PLATELET VOLUME 10.1 fL (7.9-10.8); MONOCYTES # (AUTO) 0.3 10^3/uL (0.0-1.0); MONOCYTES % (AUTO) 6.5 %; NEUTROPHILS # (AUTO) 2.1 10^3/uL (1.5-6.6); NEUTROPHILS % (AUTO) 47.8 %; PLT - PLATELET COUNT 236 10^3/uL (130-450); RED BLOOD COUNT 4.75 10^6/uL (4.20-5.40); RED CELL DISTRIBUTION WIDTH 13.1 % (12.0-15.0); WHITE BLOOD COUNT 4.3 x10^3/uL (4.8-10.8)
== END 2024-05-04 10:23 | disposition home or self-care (01) ==
LOC: LAB.N 10:22
PROVIDERS: ATTEND Nurse Practitioner Family
DX: I51.9 Heart disease, unspecified (principal); R03.0 Elevated blood-pressure reading, without diagnosis of hypertension
CPT/HCPCS: 36415; 85025